=== PATIENT | male | born 1985 ===

== ENCOUNTER 2016-11-26 14:38 | Inpatient (IN) | payer OTHER ==
[2016-11-26 14:48] VITALS: BMI 24.2
--- NOTE | 2016-11-26 15:04 | C.PDOC ---
History Of Present Illness Patient is a 31 y/o M presenting with acute onset of shortness of breath and chest tightness. Time Seen by Provider: 11/26/16 14:53 Chief Complaint (Nursing): Shortness Of Breath Past Medical History Vital Signs: Last Vital Signs Temp 98.4 F 11/26/16 14:49 Pulse 68 11/26/16 14:49 Resp 17 11/26/16 14:49 BP 125/72 11/26/16 14:49 Pulse Ox 93 L 11/26/16 14:49 Review Of Systems Constitutional: Negative for: Fever Cardiovascular: Positive for: Chest Pain. Negative for: Palpitations Respiratory: Positive for: Cough, Shortness of Breath. Negative for: Sputum Gastrointestinal: Negative for: Nausea, Vomiting, Abdominal Pain, Diarrhea, Constipation Genitourinary: Negative for: Dysuria Physical Exam - Physical Exam Appears: Well, Non-toxic, No Acute Distress Skin: Normal Color, Warm, Dry Head: Atraumatic, Normacephalic Eye(s): bilateral: Normal Inspection, PERRL, EOMI Neck: Supple Chest: Symmetrical Cardiovascular: Rhythm Regular Respiratory: Decreased Breath Sounds (R side) Gastrointestinal/Abdominal: Soft, No Tenderness, No Mass, No Distention Back: Normal Inspection Extremity: Normal ROM Neurological/Psych: Oriented x3 Gait: Steady ED Course And Treatment O2 Sat by Pulse Oximetry: 93 Disposition - Disposition Forms: nVoq (Urdu)
[2016-11-26] MEDS ORDERED: Sodium Chloride 0.9% 1,000 ML IV ONE (15:44)
--- NOTE | 2016-11-26 15:53 | RAD ---
HISTORY: shortness of breath COMPARISON: None available. TECHNIQUE: Chest PA and lateral FINDINGS: LUNGS: No focal consolidation. Please note that chest x-ray has limited sensitivity for the detection of pulmonary masses. PLEURA: Large right-sided pneumothorax. No significant pleural effusion. CARDIOVASCULAR: The cardiomediastinal silhouette appears within normal limits of size. OSSEOUS STRUCTURES: No acute osseous abnormality identified. VISUALIZED UPPER ABDOMEN: Unremarkable. OTHER FINDINGS: None. IMPRESSION: Large right-sided pneumothorax with marked collapse of the right lung. Findings discussed with Dr. Leggett on 11/26/16 at 3:48 p.m.
[2016-11-26 15:59] LABS: BASO # 0.1 K/uL (0.0-0.2); BASO % 0.8 % (0.0-2.0); EOS # 0.1 K/uL (0.0-0.7); EOS % 0.8 % (0.0-4.0); HEMATOCRIT 42.2 % (35.0-51.0); LYMPH # 2.1 K/uL (1.0-4.3); LYMPH % 18.4 % (20.0-40.0); MEAN CELL VOLUME 86.6 fL (80.0-94.0); MEAN CORPUSCULAR HEMOGLOBIN 28.7 pg (27.0-31.0); MEAN CORPUSCULAR HGB CONC 33.1 g/dL (33.0-37.0); MEAN PLATELET VOLUME 8.1 fL (7.2-11.7); MONO # 0.9 K/uL (0.0-0.8); MONO % 7.8 % (0.0-10.0); RED CELL DISTRIBUTION WIDTH 13.9 % (11.5-14.5); WHITE BLOOD COUNT 11.4 K/uL (4.8-10.8)
[2016-11-26 16:06] LABS: INR 1.2
[2016-11-26] MEDS ORDERED: Morphine 4 MG/ML VIAL ONE ×3 (16:09→17:48)
[2016-11-26 16:16] LABS: CHLORIDE 105 mmol/L (98-107); POTASSIUM 3.6 mmol/L (3.6-5.2); SODIUM 140 mmol/L (132-148)
[2016-11-26 16:18] LABS: ALB/GLOB RATIO 1.5 (1.0-2.1); ALKALINE PHOSPHATASE 102 U/L (38-126); ALT/SGPT 47 U/L (21-72); AST/SGOT 29 U/L (17-59); BLOOD UREA NITROGEN 11 mg/dL (9-20); CARBON DIOXIDE 21 mmol/L (22-30); GFR AFRICAN-AMERICAN > 60; GLUCOSE,RANDOM 101 mg/dL (75-110); TOTAL PROTEIN 8.1 g/dL (6.3-8.3)
[2016-11-26 16:19] LABS: CALCIUM 9.3 mg/dl (8.6-10.4)
--- NOTE | 2016-11-26 17:17 | C.PDOC ---
Time Seen by Provider: 11/26/16 14:53 Chief Complaint (Nursing): Shortness Of Breath History Per: Patient Onset/Duration Of Symptoms: Hrs (1.5 hours), Sudden Onset Current Symptoms Are (Timing): Still Present Initiating Event: Exercising/Sports Quality: "Pain" Exacerbating Factor(s): Coughing Severity: Moderate Associated Symptoms: Chest Pain (right side) Additional History Per: Prior Records Past Medical History Reviewed: Historical Data, Nursing Documentation, Vital Signs Vital Signs: Last Vital Signs Temp 98.4 F 11/26/16 14:49 Pulse 70 11/26/16 17:18 Resp 25 H 11/26/16 17:18 BP 152/87 H 11/26/16 17:18 Pulse Ox 100 11/26/16 17:18 - Medical History PMH: Asthma, Bronchitis, Pneumonia Surgical History: No Surg Hx Family History: States: Unknown Family Hx - Social History Hx Tobacco Use: Yes Hx Alcohol Use: No (Cessation) Hx Substance Use: Yes (Marijuana) - Immunization History Hx Tetanus Toxoid Vaccination: No Hx Influenza Vaccination: No Hx Pneumococcal Vaccination: No Review Of Systems Except As Marked, All Systems Reviewed And Found Negative. Constitutional: Negative for: Fever Cardiovascular: Positive for: Chest Pain. Negative for: Palpitations, Light Headedness Respiratory: Positive for: Shortness of Breath. Negative for: Hemoptysis Gastrointestinal: Negative for: Vomiting, Abdominal Pain Musculoskeletal: Negative for: Neck Pain, Leg Pain Skin: Negative for: Rash Neurological: Negative for: Weakness, Numbness, Seizures, Altered Mental Status Physical Exam - Physical Exam Appears: Non-toxic, No Acute Distress Skin: Normal Color, Warm, Dry, No Rash Head: Atraumatic, Normacephalic Eye(s): bilateral: Normal Inspection, PERRL, EOMI Neck: Normal ROM, Supple Cardiovascular: Rhythm Regular Respiratory: Normal Breath Sounds, Decreased Breath Sounds (on right side), No Accessory Muscle Use, No Wheezing Gastrointestinal/Abdominal: Soft, No Tenderness Extremity: Normal ROM, No Pedal Edema, No Calf Tenderness Neurological/Psych: Oriented x3, Normal Speech, Normal Cognition, Normal Motor, Normal Sensation ED Course And Treatment - Laboratory Results Result Diagrams: 11/26/16 15:54 11/26/16 15:54 Lab Interpretation: No Acute Changes O2 Sat by Pulse Oximetry: 93 Pulse Ox Interpretation: Abnormal Interpretation Of Abnormal: Mild hypoxia on RA - Radiology CXR: Viewed By Me, Read By Radiologist CXR Interpretation: Yes: Pnemothorax (right, large) - Physician Consult Information Physician Contacted: Jordan Salvador (Thoracic surgery) Outcome Of Conversation: He sent the surgery residents to place the chest tube. They placed the chest tube in the ED. He wants pt admitted on medical service and he will consult. Progress - Interventions Interventions:: Observation, Intravenous fluid, Oxygen - Medications Administered Intravenous: Opiate - Data Reviewed Data Reviewed: Lab, Diagnostic imaging, Old records - Patient Status Patient status: Mostly improved - Critical Care Citical Care: Excluding Proc Time Critical Care Time: 45 minutes - Continuity of Care Discussed patient case with:: Patient, ED Nurse, On-call PMD-pt unassigned Discussed pt. case with farm consultant/specialty: Thoracic Surgery - Patient Plan Patient Plan: Admission Disposition Discussed With DrSakina: Georgie Franklin Comment: He accepted pt on his service. Doctor Will See Patient In The: Hospital Counseled Patient/Family Regarding: Studies Performed, Diagnosis - Disposition Disposition: HOSPITALIZED Disposition Time: 17:40 Condition: FAIR Forms: [facility] (Azerbaijani) - Clinical Impression Clinical Impression: Pneumothorax, right, Spontaneous pneumothorax
--- NOTE | 2016-11-26 17:32 | RAD ---
HISTORY: s/p right chest tube placement. COMPARISON: Chest x-ray performed earlier the same day. TECHNIQUE: Chest, one view. FINDINGS: LUNGS: Interval placement of right-sided chest tube with re-expansion of the right lung. Small persistent pneumothorax measures approximately 14 mm from pleural edge. Bilateral costophrenic angles in the left lung base are incompletely imaged. No significant pleural effusion or focal consolidation appreciated. CARDIOVASCULAR: Heart size appears within normal limits. OSSEOUS STRUCTURES: No acute osseous abnormality identified. VISUALIZED UPPER ABDOMEN: Unremarkable. OTHER FINDINGS: Subcutaneous emphysema within the right lateral chest wall. IMPRESSION: Interval placement of right-sided chest tube with re-expansion of the right lung. Small persistent pneumothorax measures approximately 14 mm from pleural edge. Subcutaneous emphysema within the right lateral chest wall.
[2016-11-26] MEDS: Morphine 4 MG/ML VIAL IVP PRN ×2 (17:49→21:59)
--- NOTE | 2016-11-26 17:51 | CP.PCM.CON ---
<Conner Carson - Last Filed: 11/26/16 17:51> History of Present Illness - History of Present Illness History of Present Illness: Surgery 31 M with PMH of tabacco abuse, Marijuana abuse, Bronchitis, asthma came to ED with SOB, non productive coughing and chest discomfort. Pt reports that the symptoms gotten worsen. Pt works out and does lifting. Denies F/C/N/V/D/CP/ chest trauma/hematemesis/hemopthesis. CXR shows large pneumothox on the L chest. Pt is current heavy smoker and also smokes marijuana heavily. Has no intention quitting. Surgery is consulted to evaluate for L pneumothorax(PTX) . Pt consented for chest tube insertion on the L chest. Chest tube was placed in ED. POst insertion chest XR shows small apical persistent PTX as well as chest CT. Pt is feeling incisional pain but chest discomfort is relieved. PMH: Bronchitis, pneumonia, asthma, marijuana abuse. tabacco abuse. Review of Systems - Review of Systems Review of Systems: See HPI Past Patient History - Past Social History Smoking Status: Heavy Smoker > 10 Cigarettes Daily Drugs: Cannabis - PULMONARY Hx Asthma: Yes Hx Bronchitis: Yes Hx Pneumonia: Yes - PSYCHIATRIC Hx Substance Use: Yes (Marijuana) Meds Allergies/Adverse Reactions: Allergies Allergy/AdvReac Type Severity Reaction Status Date / Time No Known Allergies Allergy Verified 11/26/16 14:47 - Medications Medications: Current Medications Morphine Sulfate (Morphine) 4 mg IVP Q4 PRN PRN Reason: Pain, severe (8-10) Oxycodone/Acetaminophen (Percocet 5/325 Mg Tab) 2 tab PO Q4H PRN PRN Reason: Pain, moderate (4-7) Stop: 11/29/16 17:09 Physical Exam - Constitutional Appears: Non-toxic - Head Exam Head Exam: ATRAUMATIC, NORMAL INSPECTION, NORMOCEPHALIC - Eye Exam Eye Exam: EOMI, Normal appearance, PERRL Pupil Exam: NORMAL ACCOMODATION, PERRL - ENT Exam ENT Exam: Mucous Membranes Moist, Normal Exam - Neck Exam Neck exam: Positive for: Normal Inspection - Respiratory Exam Respiratory Exam: Decreased Breath Sounds. absent: Clear to Auscultation Bilateral, Rales, Rhonchi, Wheezes, Respiratory Distress, Stridor, NORMAL BREATHING PATTERN Additional comments: Absent breath sounds on ROLANDA on admission. Chest tube in place now. - Cardiovascular Exam Cardiovascular Exam: REGULAR RHYTHM, +S1, +S2 - GI/Abdominal Exam GI & Abdominal Exam: Normal Bowel Sounds, Soft. absent: Tenderness - Neurological Exam Neurological exam: Alert, CN II-XII Intact, Normal Gait, Oriented x3, Reflexes Normal - Psychiatric Exam Psychiatric exam: Normal Affect, Normal Mood - Skin Skin Exam: Dry, Intact, Normal Color, Warm Results - Vital Signs Recent Vital Signs: Last Vital Signs Temp 98.4 F 11/26/16 14:49 Pulse 70 11/26/16 17:18 Resp 25 H 11/26/16 17:18 BP 152/87 H 11/26/16 17:18 Pulse Ox 93 L 11/26/16 17:41 - Labs Result Diagrams: 11/26/16 15:54 11/26/16 15:54 Labs: Laboratory Results - last 24 hr 11/26/16 11/26/16 11/26/16 15:54 15:54 15:54 WBC 11.4 H RBC 4.88 Hgb 14.0 Hct 42.2 MCV 86.6 MCH 28.7 MCHC 33.1 RDW 13.9 Plt Count 277 MPV 8.1 Neut % (Auto) 72.2 Lymph % (Auto) 18.4 L [place] % (Auto) 7.8 Eos % (Auto) 0.8 Baso % (Auto) 0.8 Neut # 8.2 H Lymph # 2.1 [place] # 0.9 H Eos # 0.1 Baso # 0.1 PT 13.9 H INR 1.2 APTT 29 Sodium 140 Potassium 3.6 Chloride 105 Carbon Dioxide 21 L Anion Gap 18 BUN 11 Creatinine 0.6 L Est GFR ( Amer) > 60 Est GFR (Non-Af Amer) > 60 Random Glucose 101 Calcium 9.3 Total Bilirubin 1.0 AST 29 ALT 47 Alkaline Phosphatase 102 Total Protein 8.1 Albumin 4.8 Globulin 3.3 Albumin/Globulin Ratio 1.5 Assessment & Plan - Assessment and Plan (Free Text) Assessment: POD 0 s/p L thoracostomy tube No fluid output -Smoking cessation -Monitor air leaks -Daily CXR -Daily CBC -Medical management YAO Salvador <Jordan Salvador - Last Filed: 11/27/16 13:47> Meds - Medications Medications: Current Medications Albuterol/Ipratropium (Duoneb 3 Mg/0.5 Mg (3 Ml) Ud) 3 ml INH RQ6 [facility] Last Admin: 11/27/16 13:32 Dose: 3 ml Ceftriaxone Sodium 1 gm/ (Sodium Chloride) 100 mls @ 100 mls/hr IVPB DAILY [facility] Last Admin: 11/27/16 09:35 Dose: 100 mls/hr Azithromycin 500 mg/ Sodium (Chloride) 250 mls @ 250 mls/hr IVPB DAILY [facility] Last Admin: 11/27/16 10:35 Dose: 250 mls/hr Morphine Sulfate (Morphine) 4 mg IVP Q4 PRN PRN Reason: Pain, severe (8-10) Last Admin: 11/27/16 09:35 Dose: 4 mg Oxycodone/Acetaminophen (Percocet 5/325 Mg Tab) 2 tab PO Q4H PRN PRN Reason: Pain, moderate (4-7) Stop: 11/29/16 17:09 Last Admin: 11/27/16 12:09 Dose: 2 tab Results - Vital Signs Recent Vital Signs: Last Vital Signs Temp 98.3 F 11/27/16 09:06 Pulse 83 11/27/16 09:06 Resp 20 11/27/16 09:06 BP 161/75 H 11/27/16 09:06 Pulse Ox 98 11/27/16 09:06 - Labs Result Diagrams: 11/27/16 08:01 11/26/16 15:54 Labs: Laboratory Results - last 24 hr 11/27/16 08:01 WBC 21.3 H D RBC 4.64 Hgb 13.1 Hct 40.3 MCV 86.8 MCH 28.3 MCHC 32.6 L RDW 13.8 Plt Count 244 MPV 9.2 Neut % (Auto) 76.5 H Lymph % (Auto) 13.1 L [place] % (Auto) 9.2 Eos % (Auto) 0.7 Baso % (Auto) 0.5 Neut # 16.3 H Lymph # 2.8 [place] # 2.0 H Eos # 0.1 Baso # 0.1 Addendum Addendum: 11/27/16 13:43 Pt s/e, Progress notes, imaging studies reviewed. Chest tube - excellent place. Very tiny pneumo lateral chest wall. Intrapleural pressure negative and no air leak. Concur with Dr. Alli a/p, Continue chest tube for a min of 4 more days and daily cxr. Doing well.
--- NOTE | 2016-11-26 18:20 | PCM.PROC ---
Procedures Attestation:: I certify that I have explained the specified Operation(s) or Procedure(s), risks, benefits and reasonable alternatives to the Patient and/or other person responsible. The opportunity was given to ask questions and all questions answered - Chest Tube Chest Tube Location: Mid-Axillary Left Size of Tube (cm): 28 (fr) Chest Tube Procedure: Chlorhexidine Tube Sutured to Skin: Yes Sterile Dressing Applied: Yes Anesthesia: Lidocaine 1% Incision Made With: #11 blade Post Procedure: sutured to skin, sterile dressing applied Tube Drainage: fluid Amount of Initial Drainage: 2 Post Procedure CXR?: Yes Patient Tolerated Procedure: Yes
[2016-11-26] MEDS: Oxycodone/Acetaminophen 5/325 mg Tab PO PRN (20:16)
[2016-11-27] MEDS: Oxycodone/Acetaminophen 5/325 mg Tab PO PRN ×5 (01:32→22:48)
[2016-11-27] MEDS: Albuterol-Ipratrop 3 mg / 0.5 (3 ml) UD INH SCH ×4 (01:40→19:10)
[2016-11-27] MEDS: Morphine 4 MG/ML VIAL IVP PRN ×4 (04:47→20:09)
--- NOTE | 2016-11-27 07:50 | RAD ---
HISTORY: comparison COMPARISON: Portable chest 11/26/2016. FINDINGS: LUNGS: No infiltrate bilaterally. PLEURA: Right-sided chest tube is unchanged in position terminating at the right apex with questionable minimal residual pneumothorax appreciated inferolaterally measuring 7 mm. None is seen at the apex with the left chest clear. No significant pleural effusion identified. CARDIOVASCULAR: Normal. OSSEOUS STRUCTURES: No significant abnormalities. VISUALIZED UPPER ABDOMEN: Normal. OTHER FINDINGS: None. IMPRESSION: Stable right chest tube placement with trace residual pneumothorax questioned at the inferolateral right lung zone. No interval infiltrate or pleural effusion. No left pneumothorax. Right-sided chest tube unchanged in position.
[2016-11-27 08:10] LABS: BASO # 0.1 K/uL (0.0-0.2); BASO % 0.5 % (0.0-2.0); EOS # 0.1 K/uL (0.0-0.7); EOS % 0.7 % (0.0-4.0); HEMATOCRIT 40.3 % (35.0-51.0); LYMPH # 2.8 K/uL (1.0-4.3); LYMPH % 13.1 % (20.0-40.0); MEAN CELL VOLUME 86.8 fL (80.0-94.0); MEAN CORPUSCULAR HEMOGLOBIN 28.3 pg (27.0-31.0); MEAN CORPUSCULAR HGB CONC 32.6 g/dL (33.0-37.0); MEAN PLATELET VOLUME 9.2 fL (7.2-11.7); MONO % 9.2 % (0.0-10.0); RED CELL DISTRIBUTION WIDTH 13.8 % (11.5-14.5)
[2016-11-27 08:14] LABS: WHITE BLOOD COUNT 21.3 K/uL (4.8-10.8)
--- NOTE | 2016-11-27 08:44 | CT ---
EXAM: CT Chest Without Intravenous Contrast EXAM DATE/TIME: 11/26/2016 5:09 PM CLINICAL HISTORY: 31 years old, male; Condition or disease; Lung condition and disease; Pneumothorax; Prior surgery; Surgery date: Post-operative (0-2 days); Surgery type: Post chest tube; Additional info: Spontaneous ptx TECHNIQUE: Axial computed tomography images of the chest without intravenous contrast. All CT scans at this facility use one or more dose reduction techniques, viz.: automated exposure control; ma/kV adjustment per patient size (including targeted exams where dose is matched to indication; i.e. head); or iterative reconstruction technique. Coronal and sagittal reformatted images were created and reviewed. COMPARISON: CR - CHEST TWO VIEWS (PA/LAT) 11/26/2016 3:12:18 PM FINDINGS: Lungs: Subsegmental atelectasis posterior segment right upper lobe and lateral segment right middle lobe. Several hazy groundglass infiltration right lower lobe. Left lung is clear. Pleural space: Interval placement of right chest tube and near complete resolution of previously demonstrated large right pneumothorax. Small residual tiny pneumothorax near entry point of the chest tube. Trace right pleural effusion. Heart: Unremarkable. No cardiomegaly. No significant pericardial effusion. Bones/joints: Unremarkable. No acute fracture. No dislocation. Soft tissues: Unremarkable. Vasculature: Unremarkable. No thoracic aortic aneurysm. Lymph nodes: Unremarkable. No enlarged lymph nodes. Tubes, lines and devices: Edema right chest wall at site of chest tube. Also soft tissue emphysema. IMPRESSION: 1. Near-complete resolution of large right pneumothorax following chest tube placement. 2. Subsegmental atelectasis right upper and middle lobes, minimal residual hypoventilatory changes right lower lobe.
[2016-11-27] MEDS: Azithromycin 500 MG in Sodium Chloride 0.9% 250 ML IVPB SCH (10:35)
--- NOTE | 2016-11-27 17:05 | CP.PCM.PN ---
Subjective - Date & Time of Evaluation Date of Evaluation: 11/27/16 Time of Evaluation: 17:03 - Subjective Subjective: Thoracic Surgery - Dr. Salvador Pt S&E. NAEO. Pt has mild pain at the chest tube site but otherwise no complaints. He denies any SOB and sats 100%. R CT in place to wall suction, no airleak. Objective - Vital Signs/Intake and Output Vital Signs (last 24 hours): Temp Pulse Resp BP Pulse Ox 98.2 F 58 L 20 130/75 97 11/27/16 16:30 11/27/16 16:30 11/27/16 16:30 11/27/16 16:30 11/27/16 16:30 Intake and Output: 11/27/16 11/27/16 06:59 18:59 Output Total 330 Balance -330 - Medications Medications: Current Medications Albuterol/Ipratropium (Duoneb 3 Mg/0.5 Mg (3 Ml) Ud) 3 ml INH RQ6 [facility] Last Admin: 11/27/16 13:32 Dose: 3 ml Ceftriaxone Sodium 1 gm/ (Sodium Chloride) 100 mls @ 100 mls/hr IVPB DAILY [facility] Last Admin: 11/27/16 09:35 Dose: 100 mls/hr Azithromycin 500 mg/ Sodium (Chloride) 250 mls @ 250 mls/hr IVPB DAILY [facility] Last Admin: 11/27/16 10:35 Dose: 250 mls/hr Morphine Sulfate (Morphine) 4 mg IVP Q4 PRN PRN Reason: Pain, severe (8-10) Last Admin: 11/27/16 14:54 Dose: 4 mg Oxycodone/Acetaminophen (Percocet 5/325 Mg Tab) 2 tab PO Q4H PRN PRN Reason: Pain, moderate (4-7) Stop: 11/29/16 17:09 Last Admin: 11/27/16 16:50 Dose: 2 tab - Labs Labs: 11/27/16 08:01 PT 13.9 SECONDS (9.7-12.2) H 11/26/16 15:54 INR 1.2 11/26/16 15:54 APTT 29 SECONDS (21-34) 11/26/16 15:54 - Constitutional Appears: No Acute Distress - Head Exam Head Exam: ATRAUMATIC, NORMAL INSPECTION, NORMOCEPHALIC - Eye Exam Eye Exam: Normal appearance - Respiratory Exam Respiratory Exam: NORMAL BREATHING PATTERN. absent: Respiratory Distress - Neurological Exam Neurological Exam: Alert, Oriented x3 - Psychiatric Exam Psychiatric exam: Normal Affect, Normal Mood - Skin Skin Exam: Dry, Intact Assessment and Plan - Assessment and Plan (Free Text) Assessment: 31 yo M w R spontaneous pneumothorax, s/p chest tube -Continue CT to continuous wall suction -Encourage IS -Pain control -F/U daily CXR DW Dr Modesto Milner PGY3
--- NOTE | 2016-11-27 17:17 | CP.PCM.CON ---
Past Patient History - Past Medical History & Family History Past Medical History?: Yes - Past Social History Smoking Status: Heavy Smoker > 10 Cigarettes Daily - CARDIAC Hx Cardiac Disorders: No - PULMONARY Hx Respiratory Disorders: Yes Hx Asthma: Yes Hx Bronchitis: Yes Hx Pneumonia: Yes - NEUROLOGICAL Hx Neurological Disorder: No - HEENT Hx HEENT Problems: No - RENAL Hx Chronic Kidney Disease: No - ENDOCRINE/METABOLIC Hx Endocrine Disorders: No - HEMATOLOGICAL/ONCOLOGICAL Hx Blood Disorders: No - INTEGUMENTARY Hx Dermatological Problems: No - MUSCULOSKELETAL/RHEUMATOLOGICAL Hx Musculoskeletal Disorders: No Hx Falls: No - GASTROINTESTINAL Hx Gastrointestinal Disorders: No - GENITOURINARY/GYNECOLOGICAL Hx Genitourinary Disorders: No - PSYCHIATRIC Hx Psychophysiologic Disorder: Yes Hx Substance Use: Yes (Marijuana) - SURGICAL HISTORY Hx Surgeries: No - ANESTHESIA Hx Anesthesia: No Hx Anesthesia Reactions: No Hx Malignant Hyperthermia: No Has any member of the family had a problem w/ anesthesia?: No Meds Allergies/Adverse Reactions: Allergies Allergy/AdvReac Type Severity Reaction Status Date / Time No Known Allergies Allergy Verified 11/26/16 14:47 - Medications Medications: Current Medications Albuterol/Ipratropium (Duoneb 3 Mg/0.5 Mg (3 Ml) Ud) 3 ml INH RQ6 [facility] Last Admin: 11/27/16 13:32 Dose: 3 ml Ceftriaxone Sodium 1 gm/ (Sodium Chloride) 100 mls @ 100 mls/hr IVPB DAILY [facility] Last Admin: 11/27/16 09:35 Dose: 100 mls/hr Azithromycin 500 mg/ Sodium (Chloride) 250 mls @ 250 mls/hr IVPB DAILY [facility] Last Admin: 11/27/16 10:35 Dose: 250 mls/hr Morphine Sulfate (Morphine) 4 mg IVP Q4 PRN PRN Reason: Pain, severe (8-10) Last Admin: 11/27/16 14:54 Dose: 4 mg Oxycodone/Acetaminophen (Percocet 5/325 Mg Tab) 2 tab PO Q4H PRN PRN Reason: Pain, moderate (4-7) Stop: 11/29/16 17:09 Last Admin: 11/27/16 16:50 Dose: 2 tab Results - Vital Signs Recent Vital Signs: Last Vital Signs Temp 98.2 F 11/27/16 16:30 Pulse 58 L 11/27/16 16:30 Resp 20 11/27/16 16:30 BP 130/75 11/27/16 16:30 Pulse Ox 97 11/27/16 16:30 - Labs Result Diagrams: 11/27/16 08:01 11/26/16 15:54 Labs: Laboratory Results - last 24 hr 11/27/16 08:01 WBC 21.3 H D RBC 4.64 Hgb 13.1 Hct 40.3 MCV 86.8 MCH 28.3 MCHC 32.6 L RDW 13.8 Plt Count 244 MPV 9.2 Neut % (Auto) 76.5 H Lymph % (Auto) 13.1 L [place] % (Auto) 9.2 Eos % (Auto) 0.7 Baso % (Auto) 0.5 Neut # 16.3 H Lymph # 2.8 [place] # 2.0 H Eos # 0.1 Baso # 0.1
--- NOTE | 2016-11-27 19:12 | CP.PCM.HP ---
Past Patient History - Past Medical History & Family History Past Medical History?: Yes - Past Social History Smoking Status: Heavy Smoker > 10 Cigarettes Daily - CARDIAC Hx Cardiac Disorders: No - PULMONARY Hx Respiratory Disorders: Yes Hx Asthma: Yes Hx Bronchitis: Yes Hx Pneumonia: Yes - NEUROLOGICAL Hx Neurological Disorder: No - HEENT Hx HEENT Problems: No - RENAL Hx Chronic Kidney Disease: No - ENDOCRINE/METABOLIC Hx Endocrine Disorders: No - HEMATOLOGICAL/ONCOLOGICAL Hx Blood Disorders: No - INTEGUMENTARY Hx Dermatological Problems: No - MUSCULOSKELETAL/RHEUMATOLOGICAL Hx Musculoskeletal Disorders: No Hx Falls: No - GASTROINTESTINAL Hx Gastrointestinal Disorders: No - GENITOURINARY/GYNECOLOGICAL Hx Genitourinary Disorders: No - PSYCHIATRIC Hx Psychophysiologic Disorder: Yes Hx Substance Use: Yes (Marijuana) - SURGICAL HISTORY Hx Surgeries: No - ANESTHESIA Hx Anesthesia: No Hx Anesthesia Reactions: No Hx Malignant Hyperthermia: No Has any member of the family had a problem w/ anesthesia?: No Meds Allergies/Adverse Reactions: Allergies Allergy/AdvReac Type Severity Reaction Status Date / Time No Known Allergies Allergy Verified 11/26/16 14:47 Physical Exam - Constitutional Appears: Well - Head Exam Head Exam: ATRAUMATIC, NORMAL INSPECTION, NORMOCEPHALIC - Eye Exam Eye Exam: EOMI, Normal appearance, PERRL Pupil Exam: NORMAL ACCOMODATION, PERRL - ENT Exam ENT Exam: Mucous Membranes Moist, Normal Exam - Neck Exam Neck exam: Positive for: Normal Inspection - Respiratory Exam Respiratory Exam: Decreased Breath Sounds - Cardiovascular Exam Cardiovascular Exam: REGULAR RHYTHM, +S1, +S2 - GI/Abdominal Exam GI & Abdominal Exam: Diminished Bowel Sounds, Soft - Rectal Exam Rectal Exam: Deferred Results - Vital Signs Recent Vital Signs: Last Vital Signs Temp 98.2 F 11/27/16 16:30 Pulse 58 L 11/27/16 16:30 Resp 20 11/27/16 16:30 BP 130/75 11/27/16 16:30 Pulse Ox 97 11/27/16 16:30 - Labs Result Diagrams: 11/27/16 08:01 11/26/16 15:54 Labs: Laboratory Results - last 24 hr 11/27/16 08:01 WBC 21.3 H D RBC 4.64 Hgb 13.1 Hct 40.3 MCV 86.8 MCH 28.3 MCHC 32.6 L RDW 13.8 Plt Count 244 MPV 9.2 Neut % (Auto) 76.5 H Lymph % (Auto) 13.1 L [place] % (Auto) 9.2 Eos % (Auto) 0.7 Baso % (Auto) 0.5 Neut # 16.3 H Lymph # 2.8 [place] # 2.0 H Eos # 0.1 Baso # 0.1
--- NOTE | 2016-11-27 19:19 | CARD ---
APPROVED REPORT EKG Measurement Heart [id number] <Conclusion> Normal sinus rhythm Rightward axis Incomplete right bundle branch block Borderline EKG for age.
[2016-11-28] MEDS: Morphine 4 MG/ML VIAL IVP PRN ×6 (00:16→23:01)
[2016-11-28] MEDS: Albuterol-Ipratrop 3 mg / 0.5 (3 ml) UD INH SCH ×4 (01:21→20:12)
[2016-11-28] MEDS: Oxycodone/Acetaminophen 5/325 mg Tab PO PRN ×5 (02:52→21:02)
--- NOTE | 2016-11-28 09:26 | CP.PCM.PN ---
Subjective - Date & Time of Evaluation Date of Evaluation: 11/28/16 Time of Evaluation: 09:25 - Subjective Subjective: Thoracic Surgery - Dr. Salvador Pt S&E. BRENDA. Pt denies any complaints. He has mild pain from the chest tube but states its well controlled with meds. He is working with incentive spirometer. CT to wall suction w/ no airleak, ~50cc serous drainage. Objective - Vital Signs/Intake and Output Vital Signs (last 24 hours): Temp Pulse Resp BP Pulse Ox 98 F 66 20 143/86 96 11/28/16 07:00 11/28/16 07:00 11/28/16 07:00 11/28/16 07:00 11/28/16 07:00 Intake and Output: 11/28/16 11/28/16 06:59 18:59 Intake Total 850 Output Total 1050 10 Balance -200 -10 - Medications Medications: Current Medications Albuterol/Ipratropium (Duoneb 3 Mg/0.5 Mg (3 Ml) Ud) 3 ml INH RQ6 [facility] Last Admin: 11/28/16 07:58 Dose: 3 ml Ceftriaxone Sodium 1 gm/ (Sodium Chloride) 100 mls @ 100 mls/hr IVPB DAILY [facility] Last Admin: 11/27/16 09:35 Dose: 100 mls/hr Azithromycin 500 mg/ Sodium (Chloride) 250 mls @ 250 mls/hr IVPB DAILY [facility] Last Admin: 11/27/16 10:35 Dose: 250 mls/hr Morphine Sulfate (Morphine) 4 mg IVP Q4 PRN PRN Reason: Pain, severe (8-10) Last Admin: 11/28/16 05:18 Dose: 4 mg Oxycodone/Acetaminophen (Percocet 5/325 Mg Tab) 2 tab PO Q4H PRN PRN Reason: Pain, moderate (4-7) Stop: 11/29/16 17:09 Last Admin: 11/28/16 08:26 Dose: 2 tab - Labs Labs: 11/27/16 08:01 PT 13.9 SECONDS (9.7-12.2) H 11/26/16 15:54 INR 1.2 11/26/16 15:54 APTT 29 SECONDS (21-34) 11/26/16 15:54 - Constitutional Appears: No Acute Distress - Head Exam Head Exam: ATRAUMATIC, NORMAL INSPECTION, NORMOCEPHALIC - Eye Exam Eye Exam: EOMI, Normal appearance - ENT Exam ENT Exam: Mucous Membranes Moist - Respiratory Exam Respiratory Exam: Clear to Ausculation Bilateral, NORMAL BREATHING PATTERN. absent: Respiratory Distress - Cardiovascular Exam Cardiovascular Exam: REGULAR RHYTHM - Neurological Exam Neurological Exam: Alert, Oriented x3 - Psychiatric Exam Psychiatric exam: Normal Affect, Normal Mood - Skin Skin Exam: Dry, Intact Assessment and Plan - Assessment and Plan (Free Text) Assessment: 31 yo M w R spontaneous pneumothorax, s/p chest tube -Continue CT to continuous wall suction -Encourage IS -Pain control -F/U daily CXR DW Dr Modesto Milner PGY3
--- NOTE | 2016-11-28 10:39 | RAD ---
HISTORY: comparison COMPARISON: 11/27/2016 FINDINGS: LUNGS: No active pulmonary disease. PLEURA: No pneumothorax. Right apical chest tube unchanged in position. No pleural effusion. CARDIOVASCULAR: Normal. OSSEOUS STRUCTURES: No significant abnormalities. VISUALIZED UPPER ABDOMEN: Normal. OTHER FINDINGS: None. IMPRESSION: No pneumothorax. Right apical chest tube unchanged.
[2016-11-28] MEDS: Azithromycin 500 MG in Sodium Chloride 0.9% 250 ML IVPB SCH (11:00)
--- NOTE | 2016-11-28 15:40 | CP.PCM.PN ---
Subjective - Date & Time of Evaluation Date of Evaluation: 11/28/16 Time of Evaluation: 11:40 - Subjective Subjective: clinically same Objective - Vital Signs/Intake and Output Vital Signs (last 24 hours): Temp Pulse Resp BP Pulse Ox 98 F 66 20 143/86 96 11/28/16 07:00 11/28/16 07:00 11/28/16 07:00 11/28/16 07:00 11/28/16 07:00 Intake and Output: 11/28/16 11/28/16 06:59 18:59 Intake Total 850 850 Output Total 1030 220 Balance -180 630 - Medications Medications: Current Medications Albuterol/Ipratropium (Duoneb 3 Mg/0.5 Mg (3 Ml) Ud) 3 ml INH RQ6 [facility] Last Admin: 11/28/16 13:39 Dose: 3 ml Ceftriaxone Sodium 1 gm/ (Sodium Chloride) 100 mls @ 100 mls/hr IVPB DAILY [facility] Last Admin: 11/28/16 10:17 Dose: 100 mls/hr Azithromycin 500 mg/ Sodium (Chloride) 250 mls @ 250 mls/hr IVPB DAILY [facility] Last Admin: 11/28/16 11:00 Dose: 250 mls/hr Morphine Sulfate (Morphine) 4 mg IVP Q4 PRN PRN Reason: Pain, severe (8-10) Last Admin: 11/28/16 15:03 Dose: 4 mg Oxycodone/Acetaminophen (Percocet 5/325 Mg Tab) 2 tab PO Q4H PRN PRN Reason: Pain, moderate (4-7) Stop: 11/29/16 17:09 Last Admin: 11/28/16 12:38 Dose: 2 tab - Labs Labs: 11/27/16 08:01 PT 13.9 SECONDS (9.7-12.2) H 11/26/16 15:54 INR 1.2 11/26/16 15:54 APTT 29 SECONDS (21-34) 11/26/16 15:54 - Constitutional Appears: Well - Head Exam Head Exam: ATRAUMATIC, NORMAL INSPECTION, NORMOCEPHALIC - Eye Exam Eye Exam: EOMI, Normal appearance, PERRL Pupil Exam: NORMAL ACCOMODATION, PERRL - ENT Exam ENT Exam: Mucous Membranes Moist, Normal Exam - Neck Exam Neck Exam: Full ROM, Normal Inspection. absent: Lymphadenopathy - Respiratory Exam Respiratory Exam: Decreased Breath Sounds - Cardiovascular Exam Cardiovascular Exam: REGULAR RHYTHM, +S1, +S2 - GI/Abdominal Exam GI & Abdominal Exam: Soft, Diminished Bowel Sounds - Rectal Exam Rectal Exam: Deferred
--- NOTE | 2016-11-28 18:15 | CP.PCM.PN ---
Subjective - Date & Time of Evaluation Date of Evaluation: 11/28/16 Time of Evaluation: 18:15 Objective - Vital Signs/Intake and Output Vital Signs (last 24 hours): Temp Pulse Resp BP Pulse Ox 98.4 F 65 20 112/70 99 11/28/16 15:48 11/28/16 15:48 11/28/16 15:48 11/28/16 15:48 11/28/16 15:48 Intake and Output: 11/28/16 11/28/16 06:59 18:59 Intake Total 850 850 Output Total 1030 220 Balance -180 630 - Medications Medications: Current Medications Albuterol/Ipratropium (Duoneb 3 Mg/0.5 Mg (3 Ml) Ud) 3 ml INH RQ6 [facility] Last Admin: 11/28/16 13:39 Dose: 3 ml Ceftriaxone Sodium 1 gm/ (Sodium Chloride) 100 mls @ 100 mls/hr IVPB DAILY [facility] Last Admin: 11/28/16 10:17 Dose: 100 mls/hr Azithromycin 500 mg/ Sodium (Chloride) 250 mls @ 250 mls/hr IVPB DAILY [facility] Last Admin: 11/28/16 11:00 Dose: 250 mls/hr Morphine Sulfate (Morphine) 4 mg IVP Q4 PRN PRN Reason: Pain, severe (8-10) Last Admin: 11/28/16 15:03 Dose: 4 mg Oxycodone/Acetaminophen (Percocet 5/325 Mg Tab) 2 tab PO Q4H PRN PRN Reason: Pain, moderate (4-7) Stop: 11/29/16 17:09 Last Admin: 11/28/16 17:07 Dose: 2 tab - Labs Labs: 11/27/16 08:01 PT 13.9 SECONDS (9.7-12.2) H 11/26/16 15:54 INR 1.2 11/26/16 15:54 APTT 29 SECONDS (21-34) 11/26/16 15:54
[2016-11-29] MEDS: Albuterol-Ipratrop 3 mg / 0.5 (3 ml) UD INH SCH ×4 (01:13→19:43)
[2016-11-29] MEDS: Morphine 4 MG/ML VIAL IVP PRN ×5 (04:12→21:49)
[2016-11-29 07:27] LABS: BASO # 0.1 K/uL (0.0-0.2); BASO % 0.9 % (0.0-2.0); EOS # 0.3 K/uL (0.0-0.7); EOS % 3.1 % (0.0-4.0); HEMATOCRIT 41.5 % (35.0-51.0); LYMPH % 22.2 % (20.0-40.0); MEAN CELL VOLUME 86.5 fL (80.0-94.0); MEAN CORPUSCULAR HEMOGLOBIN 28.5 pg (27.0-31.0); MEAN PLATELET VOLUME 8.5 fL (7.2-11.7); MONO # 1.1 K/uL (0.0-0.8); RED CELL DISTRIBUTION WIDTH 13.7 % (11.5-14.5)
[2016-11-29 07:38] LABS: WHITE BLOOD COUNT 8.9 K/uL (4.8-10.8)
[2016-11-29 08:11] LABS: ALB/GLOB RATIO 1.3 (1.0-2.1); ALKALINE PHOSPHATASE 88 U/L (38-126); ALT/SGPT 44 U/L (21-72); AST/SGOT 25 U/L (17-59); BLOOD UREA NITROGEN 11 mg/dL (9-20); CALCIUM 9.5 mg/dl (8.6-10.4); CARBON DIOXIDE 25 mmol/L (22-30); CHLORIDE 100 mmol/L (98-107); GFR AFRICAN-AMERICAN > 60; GLUCOSE,RANDOM 94 mg/dL (75-110); POTASSIUM 4.3 mmol/L (3.6-5.2); SODIUM 141 mmol/L (132-148); TOTAL PROTEIN 7.5 g/dL (6.3-8.3)
--- NOTE | 2016-11-29 09:35 | CP.PCM.PN ---
Subjective - Date & Time of Evaluation Date of Evaluation: 11/29/16 Time of Evaluation: 09:00 - Subjective Subjective: Thoracic Surgery progress note. Dr. Salvador Pt seen and evaluated at bedside. No acute events overnight. Patient denies any new complaints. Patient denies any CP/SOB. Still with cough productive of clear phlegm. Using his Incentive Spirometer bedside. Chest tube to wall suction. No air leaks noted. Minimal serrous output overnight. Objective - Vital Signs/Intake and Output Vital Signs (last 24 hours): Temp Pulse Resp BP Pulse Ox 98.0 F 66 18 125/83 100 11/29/16 07:40 11/29/16 07:40 11/29/16 07:40 11/29/16 07:40 11/29/16 07:40 Intake and Output: 11/29/16 11/29/16 06:59 18:59 Intake Total 560 Output Total 405 Balance 155 - Medications Medications: Current Medications Albuterol/Ipratropium (Duoneb 3 Mg/0.5 Mg (3 Ml) Ud) 3 ml INH RQ6 [facility] Last Admin: 11/29/16 07:34 Dose: 3 ml Ceftriaxone Sodium 1 gm/ (Sodium Chloride) 100 mls @ 100 mls/hr IVPB DAILY [facility] Last Admin: 11/28/16 10:17 Dose: 100 mls/hr Azithromycin 500 mg/ Sodium (Chloride) 250 mls @ 250 mls/hr IVPB DAILY [facility] Last Admin: 11/28/16 11:00 Dose: 250 mls/hr Morphine Sulfate (Morphine) 4 mg IVP Q4 PRN PRN Reason: Pain, severe (8-10) Last Admin: 11/29/16 08:22 Dose: 4 mg Oxycodone/Acetaminophen (Percocet 5/325 Mg Tab) 2 tab PO Q4H PRN PRN Reason: Pain, moderate (4-7) Stop: 11/29/16 17:09 Last Admin: 11/28/16 21:02 Dose: 2 tab - Labs Labs: 11/29/16 07:16 11/29/16 07:16 PT 13.9 SECONDS (9.7-12.2) H 11/26/16 15:54 INR 1.2 11/26/16 15:54 APTT 29 SECONDS (21-34) 11/26/16 15:54 - Constitutional Appears: Well, No Acute Distress - Head Exam Head Exam: ATRAUMATIC, NORMAL INSPECTION, NORMOCEPHALIC - Eye Exam Eye Exam: EOMI, Normal appearance - ENT Exam ENT Exam: Mucous Membranes Moist - Neck Exam Neck Exam: Full ROM - Respiratory Exam Respiratory Exam: Clear to Ausculation Bilateral, NORMAL BREATHING PATTERN. absent: Accessory Muscle Use, Chest Wall Tenderness, Decreased Breath Sounds, Wheezes, Respiratory Distress Additional comments: Right sided Chest tube dressing clean, dry and intact. - Cardiovascular Exam Cardiovascular Exam: REGULAR RHYTHM. absent: JVD - GI/Abdominal Exam GI & Abdominal Exam: Soft. absent: Distended, Firm, Guarding, Rigid, Tenderness - Extremities Exam Extremities Exam: Normal Inspection. absent: Calf Tenderness - Neurological Exam Neurological Exam: Alert, Awake, Oriented x3 - Psychiatric Exam Psychiatric exam: Normal Affect, Normal Mood - Skin Skin Exam: Dry, Intact, Normal Color, Warm Assessment and Plan - Assessment and Plan (Free Text) Assessment: 31yo M with R sided spontaneous pneumothorax. S/p Chest tube placed on 11/26/16 - CXR in AM with no evidence of residual pneumo. Chest tube tip located at apex - Continue Chest Tube to continuous wall suction - Pain control - Encourage IS - Repeat CXR in the AM Further recs as per Dr. Modesto Pantoja PGY1 surgery pager: [phone]
--- NOTE | 2016-11-29 11:03 | CP.PCM.PN ---
Subjective - Date & Time of Evaluation Date of Evaluation: 11/29/16 Time of Evaluation: 09:40 - Subjective Subjective: clinically same Objective - Vital Signs/Intake and Output Vital Signs (last 24 hours): Temp Pulse Resp BP Pulse Ox 98.0 F 66 18 125/83 100 11/29/16 07:40 11/29/16 07:40 11/29/16 07:40 11/29/16 07:40 11/29/16 07:40 Intake and Output: 11/29/16 11/29/16 06:59 18:59 Intake Total 560 Output Total 405 Balance 155 - Medications Medications: Current Medications Albuterol/Ipratropium (Duoneb 3 Mg/0.5 Mg (3 Ml) Ud) 3 ml INH RQ6 [facility] Last Admin: 11/29/16 07:34 Dose: 3 ml Ceftriaxone Sodium 1 gm/ (Sodium Chloride) 100 mls @ 100 mls/hr IVPB DAILY [facility] Last Admin: 11/29/16 09:23 Dose: 100 mls/hr Azithromycin 500 mg/ Sodium (Chloride) 250 mls @ 250 mls/hr IVPB DAILY [facility] Last Admin: 11/28/16 11:00 Dose: 250 mls/hr Morphine Sulfate (Morphine) 4 mg IVP Q4 PRN PRN Reason: Pain, severe (8-10) Last Admin: 11/29/16 08:22 Dose: 4 mg Oxycodone/Acetaminophen (Percocet 5/325 Mg Tab) 2 tab PO Q4H PRN PRN Reason: Pain, moderate (4-7) Stop: 11/29/16 17:09 Last Admin: 11/28/16 21:02 Dose: 2 tab - Labs Labs: 11/29/16 07:16 11/29/16 07:16 PT 13.9 SECONDS (9.7-12.2) H 11/26/16 15:54 INR 1.2 11/26/16 15:54 APTT 29 SECONDS (21-34) 11/26/16 15:54 - Constitutional Appears: Well - Head Exam Head Exam: ATRAUMATIC, NORMAL INSPECTION, NORMOCEPHALIC - Eye Exam Eye Exam: EOMI, Normal appearance, PERRL Pupil Exam: NORMAL ACCOMODATION, PERRL - ENT Exam ENT Exam: Mucous Membranes Moist, Normal Exam - Neck Exam Neck Exam: Full ROM, Normal Inspection. absent: Lymphadenopathy - Respiratory Exam Respiratory Exam: Decreased Breath Sounds - Cardiovascular Exam Cardiovascular Exam: REGULAR RHYTHM, +S1, +S2 - GI/Abdominal Exam GI & Abdominal Exam: Soft, Diminished Bowel Sounds - Rectal Exam Rectal Exam: Deferred
--- NOTE | 2016-11-29 11:32 | RAD ---
HISTORY: interval changes COMPARISON: 11/28/2016 FINDINGS: LUNGS: No active pulmonary disease. PLEURA: Right apical chest tube, unchanged. No pneumothorax. No pleural effusion. CARDIOVASCULAR: Normal. OSSEOUS STRUCTURES: No significant abnormalities. VISUALIZED UPPER ABDOMEN: Normal. OTHER FINDINGS: None. IMPRESSION: Right apical chest tube. No pneumothorax. Otherwise unremarkable.
--- NOTE | 2016-11-29 15:24 | CP.PCM.PN ---
Subjective - Date & Time of Evaluation Date of Evaluation: 11/29/16 Time of Evaluation: 15:24 Objective - Vital Signs/Intake and Output Vital Signs (last 24 hours): Temp Pulse Resp BP Pulse Ox 98.0 F 66 18 125/83 100 11/29/16 07:40 11/29/16 07:40 11/29/16 07:40 11/29/16 07:40 11/29/16 07:40 Intake and Output: 11/29/16 11/29/16 06:59 18:59 Intake Total 560 Output Total 405 Balance 155 - Medications Medications: Current Medications Albuterol/Ipratropium (Duoneb 3 Mg/0.5 Mg (3 Ml) Ud) 3 ml INH RQ6 [facility] Last Admin: 11/29/16 14:25 Dose: 3 ml Ceftriaxone Sodium 1 gm/ (Sodium Chloride) 100 mls @ 100 mls/hr IVPB DAILY [facility] Last Admin: 11/29/16 09:23 Dose: 100 mls/hr Azithromycin 500 mg/ Sodium (Chloride) 250 mls @ 250 mls/hr IVPB DAILY [facility] Last Admin: 11/28/16 11:00 Dose: 250 mls/hr Morphine Sulfate (Morphine) 4 mg IVP Q4 PRN PRN Reason: Pain, severe (8-10) Last Admin: 11/29/16 12:35 Dose: 4 mg Oxycodone/Acetaminophen (Percocet 5/325 Mg Tab) 2 tab PO Q4H PRN PRN Reason: Pain, moderate (4-7) Stop: 11/29/16 17:09 Last Admin: 11/28/16 21:02 Dose: 2 tab - Labs Labs: 11/29/16 07:16 11/29/16 07:16 PT 13.9 SECONDS (9.7-12.2) H 11/26/16 15:54 INR 1.2 11/26/16 15:54 APTT 29 SECONDS (21-34) 11/26/16 15:54
[2016-11-29] MEDS ORDERED: Oxycodone/Acetaminophen 5/325 mg Tab PO PRN (16:23)
[2016-11-29] MEDS: Oxycodone/Acetaminophen 5/325 mg Tab PO PRN (18:57)
[2016-11-29 21:09] VITALS: RESP 20
[2016-11-30] MEDS: Albuterol-Ipratrop 3 mg / 0.5 (3 ml) UD INH SCH ×4 (01:41→19:11)
[2016-11-30] MEDS: Morphine 4 MG/ML VIAL IVP PRN ×3 (05:34→21:30)
[2016-11-30 07:23] LABS: BASO # 0.1 K/uL (0.0-0.2); BASO % 0.8 % (0.0-2.0); EOS # 0.3 K/uL (0.0-0.7); EOS % 3.8 % (0.0-4.0); HEMATOCRIT 44.2 % (35.0-51.0); LYMPH # 1.4 K/uL (1.0-4.3); MEAN CELL VOLUME 86.3 fL (80.0-94.0); MEAN CORPUSCULAR HEMOGLOBIN 28.9 pg (27.0-31.0); MEAN CORPUSCULAR HGB CONC 33.5 g/dL (33.0-37.0); MEAN PLATELET VOLUME 8.6 fL (7.2-11.7); MONO # 0.8 K/uL (0.0-0.8); MONO % 9.6 % (0.0-10.0); RED CELL DISTRIBUTION WIDTH 13.7 % (11.5-14.5); WHITE BLOOD COUNT 8.8 K/uL (4.8-10.8)
[2016-11-30] MEDS: Oxycodone/Acetaminophen 5/325 mg Tab PO PRN ×3 (07:55→19:36)
[2016-11-30 08:18] LABS: CHLORIDE 103 mmol/L (98-107); POTASSIUM 4.6 mmol/L (3.6-5.2); SODIUM 143 mmol/L (132-148)
[2016-11-30 08:20] LABS: ALB/GLOB RATIO 1.3 (1.0-2.1); ALKALINE PHOSPHATASE 100 U/L (38-126); AST/SGOT 63 U/L (17-59); BILIRUBIN,TOTAL 0.9 mg/dL (0.2-1.3); CARBON DIOXIDE 26 mmol/L (22-30); GFR AFRICAN-AMERICAN > 60; TOTAL PROTEIN 8.2 g/dL (6.3-8.3)
[2016-11-30 08:21] LABS: ALT/SGPT 114 U/L (21-72); BLOOD UREA NITROGEN 16 mg/dL (9-20); CALCIUM 9.6 mg/dl (8.6-10.4); GLUCOSE,RANDOM 93 mg/dL (75-110)
[2016-11-30] MEDS: Azithromycin 500 MG in Sodium Chloride 0.9% 250 ML IVPB SCH (09:11)
--- NOTE | 2016-11-30 10:44 | RAD ---
HISTORY: r/o interval changes COMPARISON: 11/27/2016 FINDINGS: LUNGS: Right chest tube with tip projecting to the right lung apex. However trace pneumothorax cannot entirely be excluded. Subcutaneous air within the right flank soft tissues. PLEURA: No significant pleural effusion identified, no gross pneumothorax apparent. CARDIOVASCULAR: Normal. OSSEOUS STRUCTURES: No significant abnormalities. VISUALIZED UPPER ABDOMEN: Normal. OTHER FINDINGS: None. IMPRESSION: Right chest tube with tip projecting to the right lung apex. However trace pneumothorax cannot entirely be excluded. Subcutaneous air within the right flank soft tissues.
--- NOTE | 2016-11-30 11:38 | CP.PCM.PN ---
Subjective - Date & Time of Evaluation Date of Evaluation: 11/30/16 Time of Evaluation: 11:33 - Subjective Subjective: Thoracic Surgery - Dr. Salvador Pt S&E. BRENDA. Pt has mild pain from CT, otherwise no complaints. Has some cough, little productive of white sputum. He denies any SOB. Chest tube clamped this morning for 2 hours, cxr with full lung expansion. CT then was removed at 11am. Pt tolerated well. Objective - Vital Signs/Intake and Output Vital Signs (last 24 hours): Temp Pulse Resp BP Pulse Ox 98.5 F 76 20 126/69 97 11/30/16 07:50 11/30/16 07:50 11/30/16 07:50 11/30/16 07:50 11/30/16 07:50 Intake and Output: 11/30/16 11/30/16 06:59 18:59 Intake Total 840 Output Total 350 Balance 490 - Medications Medications: Current Medications Albuterol/Ipratropium (Duoneb 3 Mg/0.5 Mg (3 Ml) Ud) 3 ml INH RQ6 [facility] Last Admin: 11/30/16 07:21 Dose: 3 ml Docusate Sodium (Colace) 100 mg PO BID [facility] Last Admin: 11/30/16 09:14 Dose: 100 mg Ceftriaxone Sodium 1 gm/ (Sodium Chloride) 100 mls @ 100 mls/hr IVPB DAILY [facility] Last Admin: 11/30/16 09:10 Dose: 100 mls/hr Azithromycin 500 mg/ Sodium (Chloride) 250 mls @ 250 mls/hr IVPB DAILY [facility] Last Admin: 11/30/16 09:11 Dose: 250 mls/hr Morphine Sulfate (Morphine) 4 mg IVP Q4 PRN PRN Reason: Pain, severe (8-10) Last Admin: 11/30/16 11:13 Dose: 4 mg Oxycodone/Acetaminophen (Percocet 5/325 Mg Tab) 2 tab PO Q4H PRN PRN Reason: Pain, moderate (4-7) Stop: 12/02/16 18:45 Last Admin: 11/30/16 07:55 Dose: 2 tab - Labs Labs: 11/30/16 07:11 11/30/16 07:11 PT 13.9 SECONDS (9.7-12.2) H 11/26/16 15:54 INR 1.2 11/26/16 15:54 APTT 29 SECONDS (21-34) 11/26/16 15:54 - Constitutional Appears: No Acute Distress - Head Exam Head Exam: ATRAUMATIC, NORMAL INSPECTION, NORMOCEPHALIC - Eye Exam Eye Exam: Normal appearance - Respiratory Exam Respiratory Exam: NORMAL BREATHING PATTERN. absent: Respiratory Distress Additional comments: CT removed, sterile occlusive dressing applied - Cardiovascular Exam Cardiovascular Exam: REGULAR RHYTHM - Neurological Exam Neurological Exam: Alert, Oriented x3 - Skin Skin Exam: Dry, Intact Assessment and Plan - Assessment and Plan (Free Text) Assessment: 31M w/ R spontaneous ptx, s/p chest tube -Chest tube removed at bedside -Repeat CXR ordered for 2pm, will F/U -If CXR stable, pt is clear for discharge home from surgical standpoint -Dressing to remain in place for 48hours, patient instructed for dressing care at home YAO Milner PGY3
--- NOTE | 2016-11-30 12:18 | CP.PCM.PN ---
Subjective - Date & Time of Evaluation Date of Evaluation: 11/30/16 Time of Evaluation: 12:12 - Subjective Subjective: States no c/o. cxr this am- No penumothorax. chest tube removed this am by Dr. Milner. cxr post-rempoval of tube-No pneumothorax. Ambulate today. d/c plan as per Dr. Hay. Objective - Vital Signs/Intake and Output Vital Signs (last 24 hours): Temp Pulse Resp BP Pulse Ox 98.5 F 76 20 126/69 97 11/30/16 07:50 11/30/16 07:50 11/30/16 07:50 11/30/16 07:50 11/30/16 07:50 Intake and Output: 11/30/16 11/30/16 06:59 18:59 Intake Total 840 Output Total 350 Balance 490 - Medications Medications: Current Medications Albuterol/Ipratropium (Duoneb 3 Mg/0.5 Mg (3 Ml) Ud) 3 ml INH RQ6 [facility] Last Admin: 11/30/16 07:21 Dose: 3 ml Docusate Sodium (Colace) 100 mg PO BID [facility] Last Admin: 11/30/16 09:14 Dose: 100 mg Ceftriaxone Sodium 1 gm/ (Sodium Chloride) 100 mls @ 100 mls/hr IVPB DAILY [facility] Last Admin: 11/30/16 09:10 Dose: 100 mls/hr Azithromycin 500 mg/ Sodium (Chloride) 250 mls @ 250 mls/hr IVPB DAILY [facility] Last Admin: 11/30/16 09:11 Dose: 250 mls/hr Morphine Sulfate (Morphine) 4 mg IVP Q4 PRN PRN Reason: Pain, severe (8-10) Last Admin: 11/30/16 11:13 Dose: 4 mg Oxycodone/Acetaminophen (Percocet 5/325 Mg Tab) 2 tab PO Q4H PRN PRN Reason: Pain, moderate (4-7) Stop: 12/02/16 18:45 Last Admin: 11/30/16 07:55 Dose: 2 tab - Labs Labs: 11/30/16 07:11 11/30/16 07:11 PT 13.9 SECONDS (9.7-12.2) H 11/26/16 15:54 INR 1.2 11/26/16 15:54 APTT 29 SECONDS (21-34) 11/26/16 15:54
--- NOTE | 2016-11-30 14:50 | RAD ---
HISTORY: Chest tube removal COMPARISON: Portable chest 11/30/2016. FINDINGS: LUNGS: Prior right chest tube is now removed. No pneumothorax is appreciated. Artifact seen lying across the upper right trachea and right apex as well and a diagonal. No infiltrate bilaterally appear PLEURA: No significant pleural effusion identified, no pneumothorax apparent. CARDIOVASCULAR: Normal. OSSEOUS STRUCTURES: No significant abnormalities. VISUALIZED UPPER ABDOMEN: Normal. OTHER FINDINGS: None. IMPRESSION: No acute infiltrate or pleural effusion bilaterally. No pneumothorax including right chest.
--- NOTE | 2016-11-30 14:58 | RAD ---
Chest x-ray single frontal view History: Chest tube removal. Comparison: 11/30/2016 Findings: Interval removal of a right chest tube. No evidence of gross pneumothorax. Subcutaneous air within the right lateral flank soft tissues. No focal infiltrate or effusion. Heart size within normal limits. Impression: Interval removal of a right chest tube. No evidence of gross pneumothorax. Subcutaneous air within the right lateral flank soft tissues. No focal infiltrate or effusion. Heart size within normal limits.
--- NOTE | 2016-11-30 17:52 | CP.PCM.PN ---
Subjective - Date & Time of Evaluation Date of Evaluation: 11/30/16 Time of Evaluation: 17:52 Objective - Vital Signs/Intake and Output Vital Signs (last 24 hours): Temp Pulse Resp BP Pulse Ox 98.1 F 74 20 130/84 99 11/30/16 15:00 11/30/16 15:00 11/30/16 15:00 11/30/16 15:00 11/30/16 15:00 Intake and Output: 11/30/16 11/30/16 06:59 18:59 Intake Total 840 700 Output Total 350 Balance 490 700 - Medications Medications: Current Medications Albuterol/Ipratropium (Duoneb 3 Mg/0.5 Mg (3 Ml) Ud) 3 ml INH RQ6 [facility] Last Admin: 11/30/16 13:17 Dose: 3 ml Docusate Sodium (Colace) 100 mg PO BID [facility] Last Admin: 11/30/16 09:14 Dose: 100 mg Ceftriaxone Sodium 1 gm/ (Sodium Chloride) 100 mls @ 100 mls/hr IVPB DAILY [facility] Last Admin: 11/30/16 09:10 Dose: 100 mls/hr Azithromycin 500 mg/ Sodium (Chloride) 250 mls @ 250 mls/hr IVPB DAILY [facility] Last Admin: 11/30/16 09:11 Dose: 250 mls/hr Morphine Sulfate (Morphine) 4 mg IVP Q4 PRN PRN Reason: Pain, severe (8-10) Last Admin: 11/30/16 11:13 Dose: 4 mg Oxycodone/Acetaminophen (Percocet 5/325 Mg Tab) 2 tab PO Q4H PRN PRN Reason: Pain, moderate (4-7) Stop: 12/02/16 18:45 Last Admin: 11/30/16 15:10 Dose: 2 tab - Labs Labs: 11/30/16 07:11 11/30/16 07:11 PT 13.9 SECONDS (9.7-12.2) H 11/26/16 15:54 INR 1.2 11/26/16 15:54 APTT 29 SECONDS (21-34) 11/26/16 15:54
--- NOTE | 2016-11-30 21:48 | CP.PCM.PN ---
Subjective - Date & Time of Evaluation Date of Evaluation: 11/30/16 Time of Evaluation: 11:40 - Subjective Subjective: clinically same Objective - Vital Signs/Intake and Output Vital Signs (last 24 hours): Temp Pulse Resp BP Pulse Ox 98.1 F 74 20 130/84 99 11/30/16 15:00 11/30/16 15:00 11/30/16 15:00 11/30/16 15:00 11/30/16 15:00 Intake and Output: 11/30/16 12/01/16 18:59 06:59 Intake Total 700 Balance 700 - Medications Medications: Current Medications Albuterol/Ipratropium (Duoneb 3 Mg/0.5 Mg (3 Ml) Ud) 3 ml INH RQ6 [facility] Last Admin: 11/30/16 19:11 Dose: 3 ml Docusate Sodium (Colace) 100 mg PO BID [facility] Last Admin: 11/30/16 18:30 Dose: 100 mg Ceftriaxone Sodium 1 gm/ (Sodium Chloride) 100 mls @ 100 mls/hr IVPB DAILY [facility] Last Admin: 11/30/16 09:10 Dose: 100 mls/hr Azithromycin 500 mg/ Sodium (Chloride) 250 mls @ 250 mls/hr IVPB DAILY [facility] Last Admin: 11/30/16 09:11 Dose: 250 mls/hr Morphine Sulfate (Morphine) 4 mg IVP Q4 PRN PRN Reason: Pain, severe (8-10) Last Admin: 11/30/16 21:30 Dose: 4 mg Oxycodone/Acetaminophen (Percocet 5/325 Mg Tab) 2 tab PO Q4H PRN PRN Reason: Pain, moderate (4-7) Stop: 12/02/16 18:45 Last Admin: 11/30/16 19:36 Dose: 2 tab - Labs Labs: 11/30/16 07:11 11/30/16 07:11 PT 13.9 SECONDS (9.7-12.2) H 11/26/16 15:54 INR 1.2 11/26/16 15:54 APTT 29 SECONDS (21-34) 11/26/16 15:54 - Constitutional Appears: Well - Head Exam Head Exam: ATRAUMATIC, NORMAL INSPECTION, NORMOCEPHALIC - Eye Exam Eye Exam: EOMI, Normal appearance, PERRL Pupil Exam: NORMAL ACCOMODATION, PERRL - ENT Exam ENT Exam: Mucous Membranes Moist, Normal Exam - Neck Exam Neck Exam: Full ROM, Normal Inspection. absent: Lymphadenopathy - Respiratory Exam Respiratory Exam: Decreased Breath Sounds - Cardiovascular Exam Cardiovascular Exam: REGULAR RHYTHM, +S1, +S2 - GI/Abdominal Exam GI & Abdominal Exam: Soft, Diminished Bowel Sounds - Rectal Exam Rectal Exam: Deferred
[2016-12-01] MEDS: Albuterol-Ipratrop 3 mg / 0.5 (3 ml) UD INH SCH ×3 (01:16→13:17)
[2016-12-01] MEDS: Morphine 4 MG/ML VIAL IVP PRN ×2 (03:39→07:59)
--- NOTE | 2016-12-01 08:27 | CP.PCM.PN ---
Subjective - Date & Time of Evaluation Date of Evaluation: 12/01/16 Time of Evaluation: 08:24 - Subjective Subjective: Thoracic Surgery - Dr. Salvador Pt S&E. NAEO. Pt denies any chest pain or SOB. He was OOB ambulating yesterday. CXR done 3hours post CT removal shows full re-expansion of the lung , no pneumothorax. Dressing is C/D/I. Objective - Vital Signs/Intake and Output Vital Signs (last 24 hours): Temp Pulse Resp BP Pulse Ox 97.9 F 74 20 118/77 100 12/01/16 07:56 12/01/16 07:56 12/01/16 07:56 12/01/16 07:56 12/01/16 07:56 Intake and Output: 12/01/16 12/01/16 06:59 18:59 Intake Total 1000 Balance 1000 - Medications Medications: Current Medications Albuterol/Ipratropium (Duoneb 3 Mg/0.5 Mg (3 Ml) Ud) 3 ml INH RQ6 [facility] Last Admin: 12/01/16 07:17 Dose: 3 ml Docusate Sodium (Colace) 100 mg PO BID [facility] Last Admin: 11/30/16 18:30 Dose: 100 mg Ceftriaxone Sodium 1 gm/ (Sodium Chloride) 100 mls @ 100 mls/hr IVPB DAILY [facility] Last Admin: 11/30/16 09:10 Dose: 100 mls/hr Azithromycin 500 mg/ Sodium (Chloride) 250 mls @ 250 mls/hr IVPB DAILY [facility] Last Admin: 11/30/16 09:11 Dose: 250 mls/hr Morphine Sulfate (Morphine) 4 mg IVP Q4 PRN PRN Reason: Pain, severe (8-10) Last Admin: 12/01/16 07:59 Dose: 4 mg Oxycodone/Acetaminophen (Percocet 5/325 Mg Tab) 2 tab PO Q4H PRN PRN Reason: Pain, moderate (4-7) Stop: 12/02/16 18:45 Last Admin: 11/30/16 19:36 Dose: 2 tab - Labs Labs: 11/30/16 07:11 11/30/16 07:11 PT 13.9 SECONDS (9.7-12.2) H 11/26/16 15:54 INR 1.2 11/26/16 15:54 APTT 29 SECONDS (21-34) 11/26/16 15:54 - Constitutional Appears: No Acute Distress - Head Exam Head Exam: ATRAUMATIC, NORMAL INSPECTION, NORMOCEPHALIC - Eye Exam Eye Exam: Normal appearance - Respiratory Exam Respiratory Exam: NORMAL BREATHING PATTERN. absent: Respiratory Distress - Cardiovascular Exam Cardiovascular Exam: REGULAR RHYTHM - Neurological Exam Neurological Exam: Alert, Oriented x3 - Psychiatric Exam Psychiatric exam: Normal Mood - Skin Skin Exam: Dry, Intact Assessment and Plan - Assessment and Plan (Free Text) Assessment: 31M w/ R spontaneous ptx, s/p chest tube -Chest tube removed yesterday -Post removal CXR stable -Patient is Clear For Discharge from surgical standpoint -Dressing may be removed tomorrow at home and replaced with bandaid or gauze. -F/U with PMD and Pulm. YAO Milner PGY3
[2016-12-01] MEDS: Azithromycin 500 MG in Sodium Chloride 0.9% 250 ML IVPB SCH (09:07)
--- NOTE | 2016-12-01 16:09 | CP.PCM.PN ---
Subjective - Date & Time of Evaluation Date of Evaluation: 12/01/16 Time of Evaluation: 16:00 - Subjective Subjective: [employer] NOTES Pt seen today , awake, alert, ox3, denies any chest pain , sob , headache dizziness, , c/o mild pain to the R side R spontaneous ptx, s/p chest tube Chest tube removed yesterday oob ambulating without sob Objective - Vital Signs/Intake and Output Vital Signs (last 24 hours): Temp Pulse Resp BP Pulse Ox 97.9 F 74 20 118/77 100 12/01/16 07:56 12/01/16 07:56 12/01/16 07:56 12/01/16 07:56 12/01/16 07:56 Intake and Output: 12/01/16 12/01/16 06:59 18:59 Intake Total 1000 800 Balance 1000 800 - Medications Medications: Current Medications Albuterol/Ipratropium (Duoneb 3 Mg/0.5 Mg (3 Ml) Ud) 3 ml INH RQ6 [facility] Last Admin: 12/01/16 13:17 Dose: 3 ml Docusate Sodium (Colace) 100 mg PO BID [facility] Last Admin: 12/01/16 09:08 Dose: 100 mg Ceftriaxone Sodium 1 gm/ (Sodium Chloride) 100 mls @ 100 mls/hr IVPB DAILY [facility] Last Admin: 12/01/16 09:07 Dose: 100 mls/hr Azithromycin 500 mg/ Sodium (Chloride) 250 mls @ 250 mls/hr IVPB DAILY [facility] Last Admin: 12/01/16 09:07 Dose: 250 mls/hr Morphine Sulfate (Morphine) 4 mg IVP Q4 PRN PRN Reason: Pain, severe (8-10) Last Admin: 12/01/16 07:59 Dose: 4 mg Oxycodone/Acetaminophen (Percocet 5/325 Mg Tab) 2 tab PO Q4H PRN PRN Reason: Pain, moderate (4-7) Stop: 12/02/16 18:45 Last Admin: 11/30/16 19:36 Dose: 2 tab - Labs Labs: 11/30/16 07:11 11/30/16 07:11 PT 13.9 SECONDS (9.7-12.2) H 11/26/16 15:54 INR 1.2 11/26/16 15:54 APTT 29 SECONDS (21-34) 11/26/16 15:54 Assessment and Plan - Assessment and Plan (Free Text) Assessment: A/P 31M w/ R spontaneous ptx, s/p chest tube Chest tube removed yesterday Post removal CXR stable seen by CT surgery and Patient is Cleared for Discharge from surgical standpoint D/W Dr. Stan nick stable for discharge home today and F/U with Dr. Stan nick office tomorrow Discharge plan discussed with eliza , who understands and agrees with plan RX e prescribed to patient pharmacy
[2016-12-01 16:23] VITALS: BP 132/83; PULSE 75; TEMP 98.1; O2SAT 96
--- NOTE | 2016-12-01 16:38 | CP.PCM.PN ---
Subjective - Date & Time of Evaluation Date of Evaluation: 12/01/16 Time of Evaluation: 16:38 Objective - Vital Signs/Intake and Output Vital Signs (last 24 hours): Temp Pulse Resp BP Pulse Ox 98.1 F 75 20 132/83 96 12/01/16 15:22 12/01/16 15:22 12/01/16 15:22 12/01/16 15:22 12/01/16 15:22 Intake and Output: 12/01/16 12/01/16 06:59 18:59 Intake Total 1000 800 Balance 1000 800 - Medications Medications: Current Medications Albuterol/Ipratropium (Duoneb 3 Mg/0.5 Mg (3 Ml) Ud) 3 ml INH RQ6 [facility] Last Admin: 12/01/16 13:17 Dose: 3 ml Docusate Sodium (Colace) 100 mg PO BID [facility] Last Admin: 12/01/16 09:08 Dose: 100 mg Ceftriaxone Sodium 1 gm/ (Sodium Chloride) 100 mls @ 100 mls/hr IVPB DAILY [facility] Last Admin: 12/01/16 09:07 Dose: 100 mls/hr Azithromycin 500 mg/ Sodium (Chloride) 250 mls @ 250 mls/hr IVPB DAILY [facility] Last Admin: 12/01/16 09:07 Dose: 250 mls/hr Morphine Sulfate (Morphine) 4 mg IVP Q4 PRN PRN Reason: Pain, severe (8-10) Last Admin: 12/01/16 07:59 Dose: 4 mg Oxycodone/Acetaminophen (Percocet 5/325 Mg Tab) 2 tab PO Q4H PRN PRN Reason: Pain, moderate (4-7) Stop: 12/02/16 18:45 Last Admin: 11/30/16 19:36 Dose: 2 tab - Labs Labs: 11/30/16 07:11 11/30/16 07:11 PT 13.9 SECONDS (9.7-12.2) H 11/26/16 15:54 INR 1.2 11/26/16 15:54 APTT 29 SECONDS (21-34) 11/26/16 15:54
== END 2016-12-01 17:00 | disposition home or self-care (01) | DRG 95 ==
LOC: C.ER 14:38 → C.9E 17:41 → C.6T 19:45
PROVIDERS: ADMIT Internal Medicine Nephrology; ATTEND Internal Medicine Nephrology
PROC: 0W9930Z Drainage of Right Pleural Cavity with Drainage Device, Percutaneous Approach (ICD-10-PCS; principal; 2016-11-26)
DX: J93.83 Other pneumothorax (principal); J45.909 Unspecified asthma, uncomplicated; F17.210 Nicotine dependence, cigarettes, uncomplicated; F12.90 Cannabis use, unspecified, uncomplicated; Z87.01 Personal history of pneumonia (recurrent)